=== PATIENT | female | born 1955 | race Caucasian/White ===

== ENCOUNTER → 2018-11-15 | Day surgery (SDC) | payer BC ==
[~2018-11-15] MED LIST: ATOR20TA58 PO; IV RINGERS,LACTATED 1000ML 1,000 ML IV SCH; PROPOFOL 20 ML IV ONE
[2018-11-15 08:43] VITALS: BP 160/72
--- NOTE | 2018-11-15 09:02 | CONS ---
DATE OF CONSULTATION: 11/15/2018 REFERRING PHYSICIAN: KRISTIAN Walsh. REASON FOR CONSULTATION: Colorectal screening. HISTORY OF PRESENT ILLNESS: A 63-year-old female with past medical history significant for hyperlipidemia, status post eye surgery, hysterectomy and tonsillectomy. She is seen for screening colon exam. Bowel habits are regular without diarrhea or constipation. There has been no melena and/or hematochezia. Weight and appetite are stable. No family history of colon polyps or colon cancer and she is otherwise without additional complaints. PAST MEDICAL HISTORY: Hyperlipidemia, anxiety, arthritis. PAST SURGICAL HISTORY: Status post eye surgery, hysterectomy and tonsillectomy. ALLERGIES: None. MEDICATIONS: Include atorvastatin 20 mg daily. FAMILY AND SOCIAL HISTORY: Significant for Barron's with her father, ovarian cancer with her mother and heart attacks with her brother and grandfather. REVIEW OF SYSTEMS: HEENT: There is no decreased hearing or visual acuity issue. CARDIAC: No history of hypertension, palpitations, syncope. PULMONARY: She is a former smoker. NEUROLOGIC: No stroke, migraine, neuropathy. PSYCHIATRIC: There is a history of anxiety. DERMATOLOGIC: No skin rashes or pruritus. MUSCULOSKELETAL: History of osteoarthrosis. HEMATOLOGIC: No bleeding, bruising or coagulopathy. PHYSICAL EXAMINATION: GENERAL: Reveals a well-nourished, well-developed female. VITAL SIGNS: Temperature is 97.4, pulse 72, respirations 18. HEENT EXAMINATION: Exam reveals normocephalic, atraumatic head. Pupils and extraocular muscles are not tested. Sclerae anicteric. NECK: Supple. LUNGS: Clear. CARDIOVASCULAR: Reveals an S1, S2 without S3, S4 or appreciable murmur. ABDOMEN: Reveals a soft abdomen, normal bowel sounds, without appreciable hepatosplenomegaly with infraumbilical hysterectomy incision. EXTREMITIES: Reveals no cyanosis, clubbing or edema. IMPRESSION: Colorectal screening is warranted at this time. Risks and benefits have been discussed with the patient including risk of hemorrhage and perforation and is willing to proceed. I would like thank physician assistant kitchen manager, Virgil Ty for allowing us to consult and participate in this patient's care. MOR KARIMI MD DR: LESLIE/praveena JOB#: [id number] / [id number] KRISTIAN Valle, [place]
--- NOTE | 2018-11-17 12:06 | PATHOLOGY ---
[facility] Accession Number: [id number] . 01 Material submitted: . colon - SIGMOID POLYP. Modifiers: sigmoid . 01 Clinical history: . CRCS . 02 Diagnosis: Colon biopsy, sigmoid polyp: - Pedunculated tubulovillous adenoma, predominantly tubular. (JPM:peoplesoft crm developer; 11/16/2018) MBR 11/16/2018 1603 Local . 02 Comment: There is no high-grade dysplasia or evidence of malignancy. The base of the pedicle is lined by colonic mucosa showing coagulative changes. (JPM:peoplesoft crm developer; 11/16/2018) . 02 Electronically signed: . Sean Hays MD, Pathologist NPI- [id number] . 01 Gross description: . Received in formalin labeled "Lexus Alvarez, sigmoid polyp," is a 1.8 x 1.4 x 1.5 cm polypoid piece of hdz soft tissue with a stalk measuring 0.3 cm in length and 0.6 cm in diameter. The margin of the stalk is inked and the tissue is sectioned perpendicular to the margin and submitted entirely in cassettes A1 through A3. (TSD; 11/15/2018) TOB/TOB 11/15/2018 1847 Local . 02 Pathologist provided ICD-10: D12.5 . 02 CPT . 770793 Specimen Comment: A courtesy copy of this report has been sent to Specimen Comment: [phone], , . Specimen Comment: Report sent to ,DR CADET / DR RAMAN Performed at: [address], [place], [place] [id number] MD Saad Conway MD Phone: [phone] Performed at: 02 [facility] [address] [place] [id number] MD Sean Hays MD Phone: [phone]
== END ==
LOC: SURG 06:50
PROVIDERS: ATTEND Internal Medicine Gastroenterology
DX: Z12.11 Encounter for screening for malignant neoplasm of colon (principal); K64.0 First degree hemorrhoids; K57.30 Diverticulosis of large intestine without perforation or abscess without bleeding; D12.5 Benign neoplasm of sigmoid colon; E78.5 Hyperlipidemia, unspecified; F41.9 Anxiety disorder, unspecified; Z87.39 Personal history of other diseases of the musculoskeletal system and connective tissue; Z90.710 Acquired absence of both cervix and uterus; Z98.890 Other specified postprocedural states
CPT/HCPCS: 45385; 88305; J2704; 45382